=== PATIENT | male | born 1955 | race Two or more races ===

== ENCOUNTER 2017-03-20 12:25 | Day surgery (SDC) | payer OTHER ==
[~2017-03-20 12:25] MED LIST: ALTOPREV20 MG; AVALIDE 300/12.1 TAB; BUSPIRONE HCL15 MG; CLONAZEPAM0.5 MG; DEPAKOTE ER500 MG; ESKALITH300 MG; FENOFIBRATE160 MG; JARDIANCE10 MG; PNEU16DI2; RISPERDAL0.5 MG; TORSEMIDE10 MG
== END 2017-03-20 15:00 | disposition home or self-care (01) ==
LOC: AMB-ENDOS 12:25
DX: D12.5 Benign neoplasm of sigmoid colon (principal); K64.2 Third degree hemorrhoids; K52.89 Other specified noninfective gastroenteritis and colitis; E11.65 Type 2 diabetes mellitus with hyperglycemia; E86.0 Dehydration; Z86.010 Personal history of colon polyps

== ENCOUNTER 2017-03-27 12:02 | Inpatient (IN) | payer OTHER ==
[~2017-03-27] VITALS: Ht 172.7 cm; Wt 102.1 kg
== END 2017-03-31 11:01 | disposition home or self-care (01) | DRG 378 ==
LOC: ER 12:02 → SURH 23:55 → SEC-K 23:55 → SURH 03-28 17:50
PROC: BW21Y0Z Computerized Tomography (CT Scan) of Abdomen and Pelvis using Other Contrast, Unenhanced and Enhanced (ICD-10-PCS; principal; 2017-03-27)
DX: K92.2 Gastrointestinal hemorrhage, unspecified (principal); D68.0 Von Willebrand disease; E11.65 Type 2 diabetes mellitus with hyperglycemia; E86.0 Dehydration; I10 Essential (primary) hypertension

== ENCOUNTER → 2017-04-29 | Emergency (ER) | payer OTHER ==
[~2017-04-29] VITALS: Ht 172.7 cm; Wt 99.8 kg
[~2017-04-29] MED LIST changes: +LITHATE5 MG
== END | disposition home or self-care (01) ==
LOC: ER 20:08
DX: R60.0 Localized edema (principal); L03.116 Cellulitis of left lower limb; L03.115 Cellulitis of right lower limb; E11.65 Type 2 diabetes mellitus with hyperglycemia

== ENCOUNTER 2017-06-11 16:19 | Outpatient (CLI) | payer OTHER | END 2017-06-11 16:28 | disposition home or self-care (01) | LOC: LAB 16:19 | DX: D68.0 Von Willebrand disease (principal) ==

== ENCOUNTER 2019-01-28 18:13 | Emergency (ER) | payer OTHER ==
[~2019-01-28] VITALS: Ht 172.7 cm; Wt 102.1 kg
== END 2019-01-28 21:06 | disposition home or self-care (01) ==
LOC: ER 18:13
DX: L03.116 Cellulitis of left lower limb (principal); E11.65 Type 2 diabetes mellitus with hyperglycemia

== ENCOUNTER 2019-02-01 12:01 | Inpatient (IN) | payer OTHER ==
[~2019-02-01] VITALS: Ht 172.7 cm; Wt 113.4 kg
[2019-02-01] MEDS ORDERED: AMBIEN5 MG PO (12:25)
[2019-02-01] MEDS ORDERED: HUMALOG100 UNIT/1 (12:26)
--- NOTE | 2019-02-01 12:38 | NUR ---
PACIENTE ACOMPANADO, LLEGA EN SILLA DE PATEL. RIGOBERTO REFERIDO DE DR.LOPEZ HUSAIN, POR DIABETES DESCONTROLADA, CELULITIS EN PIERNA IZQUIERDA, SE OBSERVA AREA DE PIERNA IZQUIERDA CON UN BENDAJE, Y AREA CON COLOR MIKEY. SE UBICA EN HARRY 10, AREA OBSERVACION.
--- NOTE | 2019-02-01 14:22 | NUR ---
EVALUADO POR EL SE ORIENTA SOBRE TRATAMIENTO MEDICO. SE LE EXTRAEN MUESTRAS DE HEATH Y SE ENVIAN AL LABORATORIO. SE MANTIENE EN OBSERVACION.
--- NOTE | 2019-02-01 16:21 | NUR ---
SE RECIBE PTE ALERTA Y ORIENTADO EN LAS 3 ESFERAS EN CAMA CON BARANDAS ELEVADAS POR SEGURIDAD. H/L SHOLA DE EDEMA Y ERITEMA. PENDIENTE CONSULTA CON DR.SANDRA HOLLIS.
--- NOTE | 2019-02-01 23:39 | NUR ---
SE RECIBE PTE DEL TURNO ANTERIOR, ALERTA Y ORIENTADO X 3 ESFERAS, EN CAMA NIVEL MAS BAJO, VILLANUEVA DE IDENTIFICACION Y BARANDAS ELEVADAS POR PRECAUCION. SE OBSERVA CON BUEN PATRON RESPIRATORIO Y PIEL TIBIA AL TACTO. H/L EN BRAZO RT PATENTE Y SHOLA DE EDEMA O ERITEMA. PENDIENTE A CONSULTA CON LA DRA HOLLIS.
--- NOTE | 2019-02-02 07:01 | NUR ---
PACIENTE ALERTA Y ORIENTADO POR CHICO ESFERAS EN COMPANIA DE FAMILIAR. SE OBSERVA H/L PATENTE SHOLA DE EDEMA Y ERITEMA. PENDIENTE CULTIVO DE CELULITIS EN DACIA AUGUSTINE Y CONSULTA CON DRA. HOLLIS. SE MANTIENE BAJO OBSERVACION POR CAMBIOS SIGNIFICATIVOS.
[2019-02-07] MEDS ORDERED: MORGIDOX100 MG PO (07:56)
== END 2019-02-07 09:29 | disposition home or self-care (01) | DRG 638 ==
LOC: ER 12:01 → SEC-K 02-02 09:14 → MEDJ 02-02 09:14
PROVIDERS: ADMIT Internal Medicine
DX: E11.628 Type 2 diabetes mellitus with other skin complications (principal); L03.116 Cellulitis of left lower limb; D68.0 Von Willebrand disease; I25.10 Atherosclerotic heart disease of native coronary artery without angina pectoris; I10 Essential (primary) hypertension; E87.8 Other disorders of electrolyte and fluid balance, not elsewhere classified; E86.0 Dehydration; E11.65 Type 2 diabetes mellitus with hyperglycemia; Z79.4 Long term (current) use of insulin

== ENCOUNTER 2019-02-14 09:52 | Outpatient (CLI) | payer OTHER ==
[~2019-02-14 09:52] MED LIST changes: +AMBIEN5 MG PO; +HUMALOG100 UNIT/1; +MORGIDOX100 MG PO
== END 2019-02-14 10:02 | disposition home or self-care (01) ==
LOC: NUCLEAR 09:52
DX: I87.2 Venous insufficiency (chronic) (peripheral) (principal)

== ENCOUNTER 2019-02-17 10:51 | Outpatient (CLI) | payer OTHER | END 2019-02-17 11:08 | disposition home or self-care (01) | LOC: NUCLEAR 10:51 | DX: I73.9 Peripheral vascular disease, unspecified (principal) ==

== ENCOUNTER → 2019-02-25 10:07 | Outpatient (CLI) | payer OTHER | END | disposition home or self-care (01) | LOC: LAB 10:07 | DX: D12.5 Benign neoplasm of sigmoid colon (principal); Z86.010 Personal history of colon polyps; K92.1 Melena; R10.10 Upper abdominal pain, unspecified ==

== ENCOUNTER → 2019-03-02 | Outpatient (CLI) | payer OTHER | END | disposition home or self-care (01) | LOC: TOM 03-01 07:45 | DX: I63.89 Other cerebral infarction (principal) | CPT/HCPCS: 70470; Q9965 ==

== ENCOUNTER 2019-03-09 06:05 | Day surgery (SDC) | payer OTHER | END 2019-03-09 10:55 | disposition home or self-care (01) | LOC: CIR.AMB 06:05 → EDSTATUS 12:45 → CIR.AMB 12:45 → SURG 12:45 | DX: K63.5 Polyp of colon (principal); Z86.010 Personal history of colon polyps; K92.1 Melena; K57.30 Diverticulosis of large intestine without perforation or abscess without bleeding; K64.2 Third degree hemorrhoids ==

== ENCOUNTER → 2019-03-23 | Emergency (ER) | payer OTHER ==
[~2019-03-23] VITALS: Ht 177.8 cm; Wt 117.9 kg
== END | disposition home or self-care (01) ==
LOC: ER 12:23
DX: S80.812A Abrasion, left lower leg, initial encounter (principal); S80.811A Abrasion, right lower leg, initial encounter; W45.8XXA Other foreign body or object entering through skin, initial encounter; Y93.89 Activity, other specified; Y92.89 Other specified places as the place of occurrence of the external cause; Y99.8 Other external cause status

== ENCOUNTER 2020-08-24 19:21 | Emergency (ER) | payer OTHER ==
[~2020-08-24] VITALS: Ht 172.7 cm; Wt 111.1 kg
== END 2020-08-24 20:33 | disposition home or self-care (01) ==
LOC: ER 19:21
DX: T83.098A Other mechanical complication of other urinary catheter, initial encounter (principal)

== ENCOUNTER 2024-09-10 19:08 | Inpatient (IN) | payer OTHER ==
[~2024-09-10] VITALS: Ht 264.2 cm; Wt 77.1 kg
[2024-09-10] MEDS ORDERED: ROSUVASTATIN CA20 MG PO (19:29)
[2024-09-10] MEDS ORDERED: JANUMET XR 50-1 EACH PO (19:30)
[2024-09-10] MEDS ORDERED: 0.9 % SODIUM CHLORIDE 1,000 ML IV ONE (19:30)
[2024-09-10] MEDS ORDERED: PIPERACILLIN/TAZOBACTAM SODIUM 3.375 GM VIAL IV ONE ×2 (19:30→20:02)
[2024-09-10] MEDS ORDERED: ACETAMINOPHEN 325 MG TABLET PO ONE (19:30)
[2024-09-10] MEDS ORDERED: MEMANTINE HCL10 MG PO (19:30)
[2024-09-10] MEDS ORDERED: CITALOPRAM HBR10 MG PO (19:30)
[2024-09-10] MEDS ORDERED: FAMOtidine 10 MG/ML (4ML VIAL) IV ONE (19:30)
[2024-09-10] MEDS ORDERED: XARELTO2.5 MG PO (19:30)
[2024-09-10] MEDS ORDERED: TAMSULOSIN HCL0.4 MG PO (19:30)
[2024-09-10] MEDS ORDERED: LEVALBUTEROL HCL 1.25 MG/3 ML SOLUTION IH ONE (19:30)
[2024-09-10] MEDS ORDERED: TRAZODONE HCL150 MG PO (19:30)
[2024-09-10] MEDS ORDERED: CETIRIZINE HCL10 MG PO (19:31)
[2024-09-10] MEDS ORDERED: IRBESARTAN-HCT1 EACH PO (19:31)
[2024-09-10] MEDS ORDERED: CLONAZEPAM1 MG PO (19:31)
[2024-09-10] MEDS ORDERED: ST. JOSEPH ASPI81 M2 PO (19:31)
[2024-09-10] MEDS ORDERED: ACETAMINOPHEN 500 MG GEL..CAP PO ONE (20:02)
[2024-09-10] MEDS ORDERED: FAMOTIDINE/PF 20 MG/2 ML VIAL ONE (20:02)
[2024-09-10 21:01] LABS: BASO % 0.2 % (0.1-1.2); EOS # 0.00 (0.04-0.54); EOS % 0.0 % (0.7-7.0); LYMPH # 1.28 (1.18-3.74); LYMPH % 7.6 % (19.3-53.1); MEAN PLATELET VOLUME 10.40 fl (9.4-12.4); MONO # 0.78 (0.24-0.82); MONO % 4.7 % (4.7-12.5); NEUT # 14.60 (1.56-6.13); NEUT % 87.1 % (34.0-71.1); RED CELL DISTRIBUTION WIDTH 12.2 % (11.6-14.4)
[2024-09-10 21:18] LABS: ALT/SGPT 12.0 U/L (12-78); AST/SGOT 14.0 U/L (15-37); BILIRUBIN TOTAL 0.84 mg/dL (0.3-1.2); BUN CREA RATIO 18.0 (7.0-25.0); CREATININE SERUM 1.96 mg/dL (0.70-1.30); GFR 33.98; GLOBULINA 3.9 G/DL (2.4-3.5); OSMOLALITY SERUM 292.0 MOSM/KG (275-295)
[2024-09-10 21:26] LABS: GLUCOSE FASTING 217.0 mg/dL (65-100)
[2024-09-10 21:37] LABS: INR 1.26
[2024-09-10] MEDS ORDERED: LEVALBUTEROL HCL 0.63 MG/3 ML SOLUTION IH ONE (21:47)
[2024-09-10] MEDS ORDERED: OSELTAMIVIR PHOSPHATE 75 MG CAPSULE PO SCH (22:02)
[2024-09-10 22:14] LABS: COVID-19 AG NEGATIVE (NEGATIVE)
[2024-09-10] MEDS ORDERED: ASPIRIN 325 MG TABLET PO ONE (22:15)
[2024-09-10] MEDS ORDERED: 0.9 % SODIUM CHLORIDE 1,000 ML IV SCH (22:45)
[2024-09-10 22:47] LABS: ABG PH 7.446 (7.35-7.45); ABG PO2 55.9 mmHg (80-100)
[2024-09-10] MEDS ORDERED: LEVALBUTEROL HCL 0.63 MG/3 ML SOLUTION IH SCH (22:47)
[2024-09-10] MEDS ORDERED: IPRATROPIUM BROMIDE 0.5 MG/2.5 ML AMPUL.NEB IH SCH (22:47)
[2024-09-10 22:48] LABS: BICARBONATE 30.5 mmol/l (23-25); o2 21 %
[2024-09-10] MEDS ORDERED: AZITHROMYCIN 500 MG in DEXTROSE 5 % IN WATER 250 ML IV SCH (22:50)
[2024-09-10] MEDS ORDERED: CEFTRIAXONE SODIUM 2,000 MG in 0.9 % SODIUM CHLORIDE 100 ML IV SCH (22:50)
[2024-09-10] MEDS ORDERED: ATORVASTATIN CALCIUM 40 MG TABLET PO SCH (22:51)
[2024-09-10] MEDS ORDERED: ENOXAPARIN SODIUM 40 MG/0.4 ML SYRINGE SUBCUTANEO SCH (22:54)
[2024-09-10] MEDS ORDERED: ACETAMINOPHEN 500 MG GEL..CAP PO PRN (23:00)
[2024-09-10] MEDS ORDERED: 0.9 % SODIUM CHLORIDE 500 ML IV ONE (23:00)
[2024-09-11] VITALS (12 sets, daily range): BP systolic 94–119; BP diastolic 51–67; O2SAT 96–100
[2024-09-11] MEDS ORDERED: AZITHROMYCIN 500 MG VIAL IV ONE (00:14)
[2024-09-11] MEDS ORDERED: CEFTRIAXONE SODIUM 2,000 MG VIAL ONE ×2 (00:14→10:15)
[2024-09-11] MEDS ORDERED: ENOXAPARIN SODIUM 80 MG/0.8 ML SYRINGE SUBCUTANEO ONE (00:14)
[2024-09-11] MEDS ORDERED: LEVALBUTEROL HCL 1.25 MG/3 ML SOLUTION IH ONE (04:37)
[2024-09-11 06:52] LABS: CHOL HDL RATIO 2.1 (0-5.0); HDL 46.0 mg/dl (40-60); LDL 37.0 mg/dl (0-130); TSH 0.361 uIU/mL (0.358-3.74); VLDL 13.0 (0-39)
[2024-09-11] MEDS ORDERED: CITALOPRAM HYDROBROMIDE 10 MG TABLET PO SCH (09:00)
[2024-09-11] MEDS ORDERED: ENOXAPARIN SODIUM 40 MG/0.4 ML SYRINGE SUBCUTANEO SCH ×2 (09:00→17:00)
[2024-09-11] MEDS ORDERED: ASPIRIN 81 MG TAB.CHEW PO SCH (09:00)
[2024-09-11] MEDS ORDERED: FAMOTIDINE/PF 20 MG in 0.9 % SODIUM CHLORIDE 8 ML IV PUSH SCH (09:00)
[2024-09-11] MEDS ORDERED: IRBESARTAN 150 MG TABLET PO SCH (09:00)
[2024-09-11] MEDS ORDERED: TAMSULOSIN HCL 0.4 MG CAP PO SCH (09:00)
[2024-09-11] MEDS ORDERED: IPRATROPIUM BROMIDE 0.5 MG/2.5 ML AMPUL.NEB IH ONE ×2 (09:14→14:39)
[2024-09-11] MEDS ORDERED: LEVALBUTEROL HCL 0.63 MG/3 ML SOLUTION IH ONE ×2 (09:14→14:39)
[2024-09-11] MEDS ORDERED: OSELTAMIVIR PHOSPHATE 75 MG CAPSULE PO ONE (10:14)
[2024-09-11] MEDS ORDERED: TAMSULOSIN HCL 0.4 MG CAP PO ONE (10:14)
[2024-09-11] MEDS ORDERED: FAMOTIDINE/PF 20 MG/2 ML VIAL ONE (10:15)
[2024-09-11] MEDS ORDERED: OSELTAMIVIR PHOSPHATE 30MG CAP PO SCH (17:00)
[2024-09-11] MEDS ORDERED: CITALOPRAM 10 MG PO SCH (17:00)
[2024-09-11] MEDS ORDERED: LACTOBACILLUS ACIDOPHILUS 1 CAP CAP PO SCH (17:00)
[2024-09-11] MEDS ORDERED: AZITHROMYCIN 500 MG VIAL IV SCH (17:00)
[2024-09-11] MEDS ORDERED: PIPERACILLIN/TAZOBACTAM SODIUM 2.25 GM in 0.9 % SODIUM CHLORIDE 50 ML IV SCH (18:00)
[2024-09-11] MEDS ORDERED: DEXTROSE 50 % IN WATER 0.5 G/ML VIAL IV PRN (23:15)
[2024-09-11] MEDS ORDERED: INSULIN LISPRO 1,000 UNIT/10 ML UNITS SUBCUTANEO PRN (23:15)
[2024-09-11] MEDS ORDERED: SODIUM CL 0.9% 50 ML IV.SOLN IV ONE (23:56)
[2024-09-12 04:02] VITALS: BP 113/56; O2SAT 96
[2024-09-12 07:33] VITALS: BP 119/68; O2SAT 100
[2024-09-12] MEDS ORDERED: MEMANTINE HCL 10 MG TABLET PO NR (10:15)
[2024-09-12 12:00] VITALS: BP 108/61; O2SAT 100
[2024-09-12] MEDS ORDERED: CLONAZEPAM 1 MG TABLET PO SCH (13:00)
[2024-09-12 15:39] VITALS: O2SAT 98
[2024-09-12] MEDS ORDERED: AZITHROMYCIN 500 MG VIAL IV ONE (16:22)
[2024-09-12] MEDS ORDERED: SODIUM CL 0.9% 50 ML IV.SOLN IV ONE ×3 (16:22→23:48)
[2024-09-12] MEDS ORDERED: TRAZODONE HCL 50 MG TABLET PO SCH (21:00)
[2024-09-12 23:00] VITALS: BP 149/54; O2SAT 100
[2024-09-13 04:02] VITALS: BP 142/76; O2SAT 99
[2024-09-13 07:07] LABS: BASO % 0.5 % (0.1-1.2); EOS # 0.05 (0.04-0.54); EOS % 0.8 % (0.7-7.0); LYMPH # 1.67 (1.18-3.74); LYMPH % 26.1 % (19.3-53.1); MEAN PLATELET VOLUME 10.50 fl (9.4-12.4); MONO # 0.47 (0.24-0.82); MONO % 7.3 % (4.7-12.5); NEUT # 4.17 (1.56-6.13); NEUT % 65.0 % (34.0-71.1); RED CELL DISTRIBUTION WIDTH 12.6 % (11.6-14.4)
[2024-09-13 07:24] VITALS: BP 142/76; O2SAT 100
[2024-09-13 07:49] LABS: ALT/SGPT 19.0 U/L (12-78); AST/SGOT 31.0 U/L (15-37); BILIRUBIN TOTAL 0.8 mg/dL (0.3-1.2); BUN CREA RATIO 13.0 (7.0-25.0); CREATININE SERUM 1.27 mg/dL (0.70-1.30); GFR 56.06; GLOBULINA 3.3 G/DL (2.4-3.5); GLUCOSE FASTING 110.0 mg/dL (65-100); OSMOLALITY SERUM 291.0 MOSM/KG (275-295)
[2024-09-13] MEDS ORDERED: MEMANTINE HCL 10 MG TABLET PO SCH (09:00)
[2024-09-13 12:00] VITALS: BP 136/75; O2SAT 100
[2024-09-13] MEDS ORDERED: PIPERACILLIN/TAZOBACTAM SODIUM 3.375 GM in 0.9 % SODIUM CHLORIDE 50 ML IV SCH (12:00)
[2024-09-13 15:00] VITALS: BP 120/77; O2SAT 100
[2024-09-13] MEDS ORDERED: AZITHROMYCIN 500 MG VIAL IV ONE (15:59)
[2024-09-13] MEDS ORDERED: OSELTAMIVIR PHOSPHATE 75 MG CAPSULE PO SCH (17:00)
[2024-09-13] MEDS ORDERED: RINGERS SOLUTION,LACTATED 1,000 ML IV SCH (19:45)
[2024-09-13 20:00] VITALS: BP 113/99; O2SAT 100
[2024-09-14] VITALS (7 sets, daily range): BP systolic 119–159; BP diastolic 70–87; O2SAT 98–100
[2024-09-14] MEDS ORDERED: MANNITOL 0.2 GM/ML (500ML) IV.SOLN IV SCH
[2024-09-14] MEDS ORDERED: AZITHROMYCIN 500 MG VIAL IV ONE (15:56)
[2024-09-14] MEDS ORDERED: MANNITOL 0.2 GM/ML (500ML) IV.SOLN IV STA (16:05)
[2024-09-14] MEDS ORDERED: SODIUM CL 0.9% 50 ML IV.SOLN IV ONE (16:18)
[2024-09-14] MEDS ORDERED: MANNITOL 0.2 GM/ML (500ML) IV.SOLN IV NR (16:35)
[2024-09-14] MEDS ORDERED: POTASSIUM CHLORIDE IN WATER 100 ML IV NR (17:00)
[2024-09-14] MEDS ORDERED: DESMOPRESSIN ACETATE 4 MCG/ML AMPUL IV SCH (17:08)
[2024-09-14 23:11] LABS: ABG PH 7.445 (7.35-7.45); BICARBONATE 24.8 mmol/l (23-25); o2 100 %
[2024-09-14 23:16] LABS: ABG PO2 397.3 mmHg (80-100)
[2024-09-15] MEDS ORDERED: MANNITOL 0.2 GM/ML (500ML) IV.SOLN IV SCH
[2024-09-15] MEDS ORDERED: CHLORHEXIDINE GLUCONATE 15ML BRUSH KIT MM SCH (01:00)
[2024-09-15 04:00] VITALS: BP 127/83; O2SAT 100
[2024-09-15 07:18] VITALS: BP 132/82; O2SAT 100
[2024-09-15 07:18] LABS: BASO % 0.2 % (0.1-1.2); EOS # 0.00 (0.04-0.54); EOS % 0.0 % (0.7-7.0); LYMPH # 2.86 (1.18-3.74); LYMPH % 29.0 % (19.3-53.1); MEAN PLATELET VOLUME 11.10 fl (9.4-12.4); MONO # 0.80 (0.24-0.82); MONO % 8.1 % (4.7-12.5); NEUT # 6.13 (1.56-6.13); NEUT % 62.2 % (34.0-71.1); RED CELL DISTRIBUTION WIDTH 12.5 % (11.6-14.4)
[2024-09-15 07:23] LABS: ERYTHROCYTE SEDIMENTATION RATE 84 mm/hr (0-20)
[2024-09-15 07:48] LABS: ALT/SGPT 25.0 U/L (12-78); AST/SGOT 33.0 U/L (15-37); BILIRUBIN TOTAL 1.24 mg/dL (0.3-1.2); BUN CREA RATIO 11.0 (7.0-25.0); CREATININE SERUM 1.46 mg/dL (0.70-1.30); GFR 47.73; GLOBULINA 4.1 G/DL (2.4-3.5); GLUCOSE FASTING 173.0 mg/dL (65-100); OSMOLALITY SERUM 298.0 MOSM/KG (275-295)
[2024-09-15] MEDS ORDERED: POLYVINYL ALCOHOL 15 ML DROPS OP SCH (09:00)
[2024-09-15 09:11] LABS: COVID-19 AG NEGATIVE (NEGATIVE)
[2024-09-15] MEDS ORDERED: SOD FERRIC GLUC COMPLX/SUCROSE 62.5 MG/5 ML AMPUL IV SCH (10:30)
[2024-09-15 12:00] VITALS: BP 136/67; O2SAT 99
[2024-09-15 12:00] LABS: ABG PH 7.461 (7.35-7.45); ABG PO2 241.0 mmHg (80-100); BICARBONATE 24.8 mmol/l (23-25)
[2024-09-15 12:02] LABS: o2 35 %
[2024-09-15 12:55] LABS: INR 1.15
[2024-09-15 13:31] LABS: COL EPI 166 SECONDS (82-175)
[2024-09-15 15:19] VITALS: BP 131/82; O2SAT 99
[2024-09-15] MEDS ORDERED: AZITHROMYCIN 500 MG VIAL IV ONE (15:44)
[2024-09-15 20:00] VITALS: BP 133/81; O2SAT 99
[2024-09-15 23:32] VITALS: BP 115/52; BP 127/81; O2SAT 100; O2SAT 97
[2024-09-16] VITALS (7 sets, daily range): BP systolic 130–139; BP diastolic 72–80; O2SAT 96–100
[2024-09-16 08:35] LABS: ABG PH 7.440 (7.35-7.45); ABG PO2 87.0 mmHg (80-100)
[2024-09-16 08:36] LABS: BICARBONATE 24.6 mmol/l (23-25)
[2024-09-16 08:37] LABS: o2 35 %
[2024-09-16] MEDS ORDERED: MANNITOL 0.2 GM/ML (250ML) PIGGYBAG IV SCH (12:00)
[2024-09-16] MEDS ORDERED: AZITHROMYCIN 500 MG VIAL IV ONE (16:20)
[2024-09-17] VITALS (9 sets, daily range): BP systolic 104–138; BP diastolic 64–99; O2SAT 90–100
[2024-09-17 07:34] LABS: BASO % 0.1 % (0.1-1.2); EOS # 0.00 (0.04-0.54); EOS % 0.0 % (0.7-7.0); LYMPH # 1.34 (1.18-3.74); LYMPH % 14.2 % (19.3-53.1); MEAN PLATELET VOLUME 12.50 fl (9.4-12.4); MONO # 0.74 (0.24-0.82); MONO % 7.8 % (4.7-12.5); NEUT # 7.22 (1.56-6.13); NEUT % 76.3 % (34.0-71.1); RED CELL DISTRIBUTION WIDTH 13.4 % (11.6-14.4)
[2024-09-17 08:15] LABS: ALT/SGPT 18.0 U/L (12-78); AST/SGOT 19.0 U/L (15-37); BILIRUBIN TOTAL 0.61 mg/dL (0.3-1.2); BUN CREA RATIO 12.0 (7.0-25.0); CREATININE SERUM 3.28 mg/dL (0.70-1.30); GFR 18.76; GLUCOSE FASTING 126.0 mg/dL (65-100); OSMOLALITY SERUM 266.0 MOSM/KG (275-295)
[2024-09-17 08:35] LABS: GLOBULINA 2.9 G/DL (2.4-3.5)
[2024-09-17 09:39] LABS: BASO % 0.1 % (0.1-1.2); EOS # 0.00 (0.04-0.54); EOS % 0.0 % (0.7-7.0); LYMPH # 1.45 (1.18-3.74); LYMPH % 14.1 % (19.3-53.1); MEAN PLATELET VOLUME 12.90 fl (9.4-12.4); MONO # 0.77 (0.24-0.82); MONO % 7.5 % (4.7-12.5); NEUT # 7.89 (1.56-6.13); NEUT % 76.7 % (34.0-71.1); RED CELL DISTRIBUTION WIDTH 13.6 % (11.6-14.4)
[2024-09-17 09:41] LABS: ABG PH 7.430 (7.35-7.45); ABG PO2 97.1 mmHg (80-100); BICARBONATE 22.5 mmol/l (23-25); o2 35 %
[2024-09-17 10:09] LABS: ALT/SGPT 20.0 U/L (12-78); AST/SGOT 22.0 U/L (15-37); BILIRUBIN TOTAL 0.73 mg/dL (0.3-1.2); BUN CREA RATIO 11.0 (7.0-25.0); GFR 14.58; GLOBULINA 3.0 G/DL (2.4-3.5); GLUCOSE FASTING 142.0 mg/dL (65-100); OSMOLALITY SERUM 299.0 MOSM/KG (275-295)
[2024-09-17 11:33] LABS: CREATININE SERUM 4.08 mg/dL (0.70-1.30)
[2024-09-17] MEDS ORDERED: FLUCONAZOLE IN NACL,ISO-OSM 200 MG/100 ML PIGGYBAG IV SCH (13:00)
[2024-09-17] MEDS ORDERED: 0.9 % SODIUM CHLORIDE 1,000 ML IV SCH (17:15)
[2024-09-17] MEDS ORDERED: MANNITOL 0.2 GM/ML (250ML) PIGGYBAG IV SCH (21:00)
[2024-09-18 04:00] VITALS: BP 120/60; O2SAT 100
[2024-09-18 07:10] VITALS: BP 124/89; O2SAT 97
[2024-09-18] MEDS ORDERED: MANNITOL 0.2 GM/ML (250ML) PIGGYBAG IV SCH (09:00)
[2024-09-18] MEDS ORDERED: PROPOFOL 100 ML IV SCH ×2 (09:15→09:30)
[2024-09-18] MEDS ORDERED: LORazepam 2 MG/ML VIAL IV PUSH ONE (09:45)
[2024-09-18 10:00] VITALS: BP 129/74; O2SAT 97
[2024-09-18 10:45] LABS: BASO % 0.1 % (0.1-1.2); EOS # 0.00 (0.04-0.54); EOS % 0.0 % (0.7-7.0); LYMPH # 1.89 (1.18-3.74); LYMPH % 15.0 % (19.3-53.1); MEAN PLATELET VOLUME 13.20 fl (9.4-12.4); MONO # 0.77 (0.24-0.82); MONO % 6.1 % (4.7-12.5); NEUT # 9.75 (1.56-6.13); NEUT % 77.3 % (34.0-71.1); RED CELL DISTRIBUTION WIDTH 15.5 % (11.6-14.4)
[2024-09-18 11:22] LABS: ALT/SGPT 22.0 U/L (12-78); AST/SGOT 19.0 U/L (15-37); BILIRUBIN TOTAL 1.23 mg/dL (0.3-1.2); GLOBULINA 3.1 G/DL (2.4-3.5); GLUCOSE FASTING 122.0 mg/dL (65-100); OSMOLALITY SERUM 306.0 MOSM/KG (275-295)
[2024-09-18 11:43] LABS: BUN CREA RATIO 10.0 (7.0-25.0); GFR 9.53
[2024-09-18 11:45] LABS: CREATININE SERUM 5.9 mg/dL (0.70-1.30)
[2024-09-18 12:00] VITALS: BP 122/71; O2SAT 97
[2024-09-18 12:03] LABS: URINE APPEARANCE Turbid; URINE BILIRRUBIN Negative (NEGATIVE); URINE BLOOD Large; URINE COLOR Dark Yellow; URINE GLUCOSE Negative (NEGATIVE); URINE KETONE Negative (NEGATIVE); URINE LEUKOCYTE Moderate; URINE NITRATE Negative; URINE UROBILINOGEN 0.2 E.U./dl
[2024-09-18 12:04] LABS: URINE BACTERIA 5512.7 uL (0.0-1933); URINE CAST 5.99 uL (0.0-1.40); URINE RBC 1123.7 uL (0.0-20.8)
[2024-09-18 12:31] LABS: TYPE CELLS SQUAMOUS; URINE EPITHELIAL CELLS > 201.7 uL (0.0-38.8); URINE PROTEIN 100 (NEGATIVE); URINE WBC > 5548.3 uL (0.0-23.2); URINE YEAST MODERATE /hpf
[2024-09-18 12:58] LABS: ABG PH 7.390 (7.35-7.45); ABG PO2 99.8 mmHg (80-100)
[2024-09-18 13:00] LABS: BICARBONATE 22.0 mmol/l (23-25)
[2024-09-18] MEDS ORDERED: LORazepam 2 MG/ML VIAL IV PUSH SCH (13:00)
[2024-09-18 13:03] LABS: o2 35 %
[2024-09-18 14:00] VITALS: BP 133/72; O2SAT 100
[2024-09-18 15:00] VITALS: BP 130/76; O2SAT 100
[2024-09-18] MEDS ORDERED: POTASSIUM PHOS,M-BASIC-D-BASIC 3 MM/ML VIAL IV SCH (16:00)
[2024-09-18] MEDS ORDERED: PIPERACILLIN/TAZOBACTAM SODIUM 2.25 GM in 0.9 % SODIUM CHLORIDE 50 ML IV SCH (18:00)
== END 2024-09-18 16:26 | disposition designated cancer center or children's hospital (05) | DRG 208 ==
LOC: ER 19:08 → ICU-2 22:54 → ICU 22:54
PROVIDERS: General Practice; Internal Medicine; Internal Medicine Hematology & Oncology; Internal Medicine Nephrology; ADMIT Internal Medicine; ATTEND Internal Medicine
PROC: BR20ZZZ Computerized Tomography (CT Scan) of Cervical Spine (ICD-10-PCS; 2024-09-10)
PROC: BW28ZZZ Computerized Tomography (CT Scan) of Head (ICD-10-PCS; 2024-09-10)
PROC: BW24ZZZ Computerized Tomography (CT Scan) of Chest and Abdomen (ICD-10-PCS; 2024-09-10)
PROC: B24BZZZ Ultrasonography of Heart with Aorta (ICD-10-PCS; 2024-09-10)
PROC: 8E0ZXY6 Isolation (ICD-10-PCS; 2024-09-10)
PROC: 5A1945Z Respiratory Ventilation, 24-96 Consecutive Hours (ICD-10-PCS; principal; 2024-09-14)
PROC: 0BH17EZ Insertion of Endotracheal Airway into Trachea, Via Natural or Artificial Opening (ICD-10-PCS; 2024-09-14)
PROC: BW28ZZZ Computerized Tomography (CT Scan) of Head (ICD-10-PCS; 2024-09-14)
PROC: 30233N1 Transfusion of Nonautologous Red Blood Cells into Peripheral Vein, Percutaneous Approach (ICD-10-PCS; 2024-09-17)
DX: J10.00 Influenza due to other identified influenza virus with unspecified type of pneumonia (principal); I21.A1 Myocardial infarction type 2; S06.5XAA Traumatic subdural hemorrhage with loss of consciousness status unknown, initial encounter; J96.00 Acute respiratory failure, unspecified whether with hypoxia or hypercapnia; N17.9 Acute kidney failure, unspecified; D68.00 Von Willebrand disease, unspecified; N39.0 Urinary tract infection, site not specified; B37.89 Other sites of candidiasis; J69.0 Pneumonitis due to inhalation of food and vomit; E86.0 Dehydration; Z79.4 Long term (current) use of insulin; G31.09 Other frontotemporal neurocognitive disorder; F02.80 Dementia in other diseases classified elsewhere, unspecified severity, without behavioral disturbance, psychotic disturbance, mood disturbance, and anxiety; I12.9 Hypertensive chronic kidney disease with stage 1 through stage 4 chronic kidney disease, or unspecified chronic kidney disease; E11.22 Type 2 diabetes mellitus with diabetic chronic kidney disease; N18.30 Chronic kidney disease, stage 3 unspecified; E87.6 Hypokalemia; E11.65 Type 2 diabetes mellitus with hyperglycemia; I95.89 Other hypotension; Z95.1 Presence of aortocoronary bypass graft; D50.9 Iron deficiency anemia, unspecified; G30.9 Alzheimer's disease, unspecified; R56.9 Unspecified convulsions